=== PATIENT | female | born 1965 | race Caucasian/White ===

== ENCOUNTER 2019-10-18 14:47 | Emergency (ER) | payer OTHER ==
[~2019-10-18] VITALS: Ht 170.2 cm; Wt 65.9 kg
[~2019-10-18 14:47] MED LIST: CYCL10TA7 PO; IBUP-2343 PO
[2019-10-18 15:51] VITALS: BP 119/73
== END 2019-10-18 15:58 | disposition home or self-care (01) ==
LOC: EMS 14:48
DX: H66.92 Otitis media, unspecified, left ear (principal); H60.92 Unspecified otitis externa, left ear; Z90.49 Acquired absence of other specified parts of digestive tract